=== PATIENT | female | born 1925 | race Caucasian/White ===

== ENCOUNTER 2017-04-01 11:12 | Inpatient (IN) | payer MEDICARE, MEDICAID ==
[~2017-04-01] VITALS: Ht 144.8 cm; Wt 50.8 kg
[~2017-04-01 11:12] MED LIST: AMLO10TA80; LISI10TA5
[2017-04-01] MEDS ORDERED: ASPIRIN 81MG TABLET PO STA (12:02)
[2017-04-01] MEDS ORDERED: HYDRALAZINE 20MG/ML VIAL IV ONE (12:15)
[2017-04-01 12:55] LABS: BASOPHILS % 0.6 % (0.0-2.0); EOSINOPHILS % 1.8 % (0.0-5.0); HEMATOCRIT. 36.4 % (36.0-48.0); HEMOGLOBIN. 12.4 g/dL (12.0-16.0); MEAN CORPUSCULAR HEMOGLOBIN 31.2 pg (28.0-32.0); MEAN CORPUSCULAR VOLUME 91.3 fL (81.0-99.0); MEAN PLATELET VOLUME 8.5 fl (7.4-10.4); MONOCYTES % 10.3 % (2.0-8.0); NEUTROPHILS % 59.3 % (40.0-76.0); PLATELET 253 x1000/uL (130-400); RED BLOOD CELL COUNT 3.99 mill/uL (4.2-5.4); RED CELL DISTRIBUTION WIDTH 12.8 % (11.6-14.6)
[2017-04-01 13:04] LABS: PROTHROMBIN TIME 10.4 sec (9.4-11.6)
[2017-04-01 13:12] LABS: CARBON DIOXIDE 28 mEq/L (21-32); CHLORIDE 101 mEq/L (98-107)
[2017-04-01 13:14] LABS: TROPONIN I 0.02 ng/mL (0.00-0.04)
[2017-04-01] MEDS ORDERED: LABETALOL 5MG/ML SYR 20 MG/4 ML SYRINGE IV ONE (13:30)
[2017-04-01 16:30] VITALS: BP 200/68
[2017-04-01 16:46] VITALS: BP 200/68
[2017-04-01 16:49] VITALS: BP 200/68
[2017-04-01] MEDS ORDERED: DIPHENHYDRAMINE 50MG/ML VIAL IV PRN (17:30)
[2017-04-01] MEDS ORDERED: DOCUSATE SODIUM 100MG CAPSULE PO PRN (17:30)
[2017-04-01] MEDS ORDERED: ONDANSETRON HCL 4MG/2ML VIAL IV PRN (17:30)
[2017-04-01] MEDS ORDERED: MAGNESIUM/ALUMINUM HYDROXIDE/SIMETHICONE 30ML UDC PO PRN (17:30)
[2017-04-01] MEDS ORDERED: GUAIFENESIN 200MG/10ML SUGAR FREE UDC PO PRN (17:30)
[2017-04-01] MEDS: CLONIDINE 0.1MG TABLET PO PRN (17:42)
[2017-04-01] MEDS: ACETAMINOPHEN 325MG TABLET PO PRN (17:43)
[2017-04-01 20:00] VITALS: BP 125/40
[2017-04-01] MEDS: METOPROLOL TARTRATE 25MG TABLET PO SCH (21:00)
[2017-04-01 23:10] LABS: CREATINE KINASE MB FRACTION 4.9 ng/mL (0.5-3.6)
[2017-04-01 23:19] LABS: TROPONIN I 1.1 ng/mL (0.00-0.04)
[2017-04-02] VITALS: BP 158/56
[2017-04-02 04:00] VITALS: BP 167/56
[2017-04-02] MEDS: ACETAMINOPHEN 325MG TABLET PO PRN ×2 (04:36→09:12)
[2017-04-02] MEDS ORDERED: LEVOTHYROXINE SODIUM 75MCG TABLET PO SCH ×2 (07:20)
[2017-04-02 08:26] LABS: CREATINE KINASE MB FRACTION 6.3 ng/mL (0.5-3.6); T4 FREE 1.41 ng/dL (0.76-1.46)
[2017-04-02 08:32] LABS: TROPONIN I 2.5 ng/mL (0.00-0.04)
[2017-04-02 08:35] LABS: C REACTIVE PROTEIN QUANT 7.6 mg/L (0.0-3.0)
[2017-04-02] MEDS ORDERED: ENOXAPARIN 30MG/0.3ML SYR SUBCUT SCH ×2 (09:00→10:00)
[2017-04-02] MEDS ORDERED: HYDRALAZINE HCL 25MG TABLET PO SCH (09:00)
[2017-04-02] MEDS: METOPROLOL TARTRATE 25MG TABLET PO SCH ×2 (09:12→21:39)
[2017-04-02] MEDS: ASPIRIN 81MG TABLET PO SCH (09:13)
[2017-04-02] MEDS: LOSARTAN POTASSIUM 50 MG TABLET PO SCH ×2 (09:13→16:43)
[2017-04-02 09:26] VITALS: BP 135/69
[2017-04-02] MEDS ORDERED: ENOXAPARIN 40MG/0.4ML SYR SUBCUT NR (10:00)
[2017-04-02 10:20] LABS: BASOPHILS % 0.7 % (0.0-2.0); EOSINOPHILS % 2.1 % (0.0-5.0); HEMATOCRIT. 32.2 % (36.0-48.0); HEMOGLOBIN. 11.1 g/dL (12.0-16.0); LYMPHOCYTES % 23.4 % (20.0-50.0); MEAN CORPUSCULAR HEMOGLOBIN 31.4 pg (28.0-32.0); MEAN CORPUSCULAR VOLUME 91.7 fL (81.0-99.0); MEAN PLATELET VOLUME 9.3 fl (7.4-10.4); MONOCYTES % 10.5 % (2.0-8.0); NEUTROPHILS % 63.3 % (40.0-76.0); PLATELET 239 x1000/uL (130-400); RED BLOOD CELL COUNT 3.51 mill/uL (4.2-5.4); RED CELL DISTRIBUTION WIDTH 12.8 % (11.6-14.6)
[2017-04-02 12:39] VITALS: BP 168/54
[2017-04-02] MEDS: SODIUM CHLORIDE 0.9% INJ 3ML FLUSH IVF SCH ×2 (14:00→21:39)
[2017-04-02 17:17] VITALS: BP 183/52
[2017-04-02 18:08] LABS: TROPONIN I 2.4 ng/mL (0.00-0.04)
[2017-04-02 20:00] VITALS: BP 189/64
[2017-04-02] MEDS: HYDRALAZINE HCL 25MG TABLET PO SCH (21:40)
[2017-04-03] VITALS: BP 142/55
[2017-04-03 04:00] VITALS: BP 205/62
[2017-04-03] MEDS: HYDRALAZINE HCL 25MG TABLET PO SCH ×3 (05:52→22:16)
[2017-04-03] MEDS: CLONIDINE 0.1MG TABLET PO PRN (05:56)
[2017-04-03] MEDS: SODIUM CHLORIDE 0.9% INJ 3ML FLUSH IVF SCH ×3 (05:58→20:48)
[2017-04-03] MEDS: LEVOTHYROXINE SODIUM 50MCG TABLET PO SCH (06:27)
[2017-04-03] MEDS ORDERED: LEVOTHYROXINE SODIUM 50MCG TABLET PO SCH (07:20)
[2017-04-03 07:59] VITALS: BP 176/52
[2017-04-03 08:16] LABS: CREATINE KINASE MB FRACTION 2.4 ng/mL (0.5-3.6)
[2017-04-03] MEDS: LOSARTAN POTASSIUM 50 MG TABLET PO SCH ×2 (08:25→17:05)
[2017-04-03] MEDS: METOPROLOL TARTRATE 25MG TABLET PO SCH ×2 (08:26→20:47)
[2017-04-03] MEDS: ASPIRIN 81MG TABLET PO SCH (08:26)
[2017-04-03 08:45] LABS: TROPONIN I 1.3 ng/mL (0.00-0.04)
[2017-04-03] MEDS ORDERED: ENOXAPARIN 30MG/0.3ML SYR SUBCUT SCH (09:00)
[2017-04-03 11:58] VITALS: BP 142/45
[2017-04-03 12:45] LABS: CARBON DIOXIDE 29 mEq/L (21-32); CHLORIDE 100 mEq/L (98-107)
[2017-04-03 16:00] VITALS: BP 165/52
[2017-04-03] MEDS: ACETAMINOPHEN 325MG TABLET PO PRN (17:08)
[2017-04-03 20:00] VITALS: BP 160/54
[2017-04-03] MEDS: AMLODIPINE 5MG TABLET PO SCH (20:45)
[2017-04-03] MEDS: LIDOCAINE 5% PATCH TOP SCH (22:15)
[2017-04-04 04:00] VITALS: BP 154/56
[2017-04-04] MEDS: SODIUM CHLORIDE 0.9% INJ 3ML FLUSH IVF SCH ×3 (06:13→21:36)
[2017-04-04] MEDS: HYDRALAZINE HCL 25MG TABLET PO SCH ×2 (06:13→13:22)
[2017-04-04] MEDS: LEVOTHYROXINE SODIUM 50MCG TABLET PO SCH (06:14)
[2017-04-04 07:25] LABS: EOSINOPHILS % 3.8 % (0.0-5.0); HEMATOCRIT. 35.1 % (36.0-48.0); HEMOGLOBIN. 11.7 g/dL (12.0-16.0); LYMPHOCYTES % 29.2 % (20.0-50.0); MEAN CORPUSCULAR HEMOGLOBIN 30.9 pg (28.0-32.0); MEAN CORPUSCULAR VOLUME 92.9 fL (81.0-99.0); MEAN PLATELET VOLUME 8.9 fl (7.4-10.4); MONOCYTES % 10.9 % (2.0-8.0); NEUTROPHILS % 55.1 % (40.0-76.0); PLATELET 249 x1000/uL (130-400); RED BLOOD CELL COUNT 3.77 mill/uL (4.2-5.4); RED CELL DISTRIBUTION WIDTH 13.2 % (11.6-14.6)
[2017-04-04 08:04] LABS: PHOSPHORUS 4.4 mg/dL (2.5-4.9)
[2017-04-04] MEDS: METOPROLOL TARTRATE 25MG TABLET PO SCH ×2 (08:26→21:24)
[2017-04-04] MEDS: ASPIRIN 81MG TABLET PO SCH (08:29)
[2017-04-04 08:30] VITALS: BP 207/65
[2017-04-04] MEDS: LOSARTAN POTASSIUM 50 MG TABLET PO SCH ×2 (08:30→17:14)
[2017-04-04] MEDS: CLONIDINE 0.1MG TABLET PO PRN (08:30)
[2017-04-04] MEDS: AMLODIPINE 5MG TABLET PO SCH ×2 (08:30→21:25)
[2017-04-04] MEDS: LIDOCAINE 5% PATCH TOP SCH (08:33)
[2017-04-04 09:47] LABS: CLARITY URINE CLEAR (CLEAR); COLOR URINE YELLOW (YELLOW); GLUCOSE URINE NEGATIVE (NEGATIVE); KETONES URINE NEGATIVE (NEGATIVE); LEUKOCYTE ESTERASE URINE NEGATIVE (NEGATIVE); NITRITE URINE NEGATIVE (NEGATIVE); OCCULT BLOOD URINE NEGATIVE (NEGATIVE); PH URINE 7.5 (4.5-8.0); PROTEIN URINE NEGATIVE (NEGATIVE); SPECIFIC GRAVITY URINE 1.008 (1.005-1.030); UROBILINOGEN URINE 0.2 E.U./dL (0.2-1.0)
[2017-04-04 12:00] VITALS: BP 149/56
[2017-04-04] MEDS: CLONIDINE 0.2MG TABLET PO SCH ×2 (13:00→16:04)
[2017-04-04 16:00] VITALS: BP 205/88
[2017-04-04] MEDS: ACETAMINOPHEN 325MG TABLET PO PRN (18:19)
[2017-04-04 20:00] VITALS: BP 137/50
[2017-04-04] MEDS ORDERED: ZOLPIDEM TARTRATE 5MG TABLET PO NR (21:00)
[2017-04-04] MEDS ORDERED: HYDROCODONE/ACETAMINOPHEN 5/325MG TABLET PO PRN (21:00)
[2017-04-05] VITALS: BP 132/56
[2017-04-05] MEDS: HYDRALAZINE HCL 50MG TABLET PO SCH ×4 (00:38→23:00)
[2017-04-05 04:00] VITALS: BP 147/52
[2017-04-05] MEDS: LEVOTHYROXINE SODIUM 50MCG TABLET PO SCH (06:47)
[2017-04-05] MEDS: SODIUM CHLORIDE 0.9% INJ 3ML FLUSH IVF SCH ×3 (06:51→23:00)
[2017-04-05 08:00] VITALS: BP 159/46
[2017-04-05] MEDS: ACETAMINOPHEN 325MG TABLET PO PRN ×2 (08:24→16:53)
[2017-04-05] MEDS: METOPROLOL TARTRATE 25MG TABLET PO SCH ×2 (08:25→21:00)
[2017-04-05] MEDS: LOSARTAN POTASSIUM 50 MG TABLET PO SCH ×2 (08:26→16:50)
[2017-04-05] MEDS: AMLODIPINE 5MG TABLET PO SCH (08:26)
[2017-04-05] MEDS: ASPIRIN 81MG TABLET PO SCH (08:26)
[2017-04-05] MEDS: LIDOCAINE 5% PATCH TOP SCH (08:31)
[2017-04-05] MEDS ORDERED: HYDRALAZINE 20MG/ML VIAL IV PRN (11:00)
[2017-04-05 12:00] VITALS: BP 147/48
[2017-04-05 16:00] VITALS: BP 169/56
[2017-04-05 20:00] VITALS: BP 144/57
[2017-04-06] MEDS: ACETAMINOPHEN 325MG TABLET PO PRN ×2 (02:08→11:29)
[2017-04-06 04:00] VITALS: BP 189/72
[2017-04-06] MEDS ORDERED: AMLODIPINE 5MG TABLET PO SCH (06:00)
[2017-04-06] MEDS: HYDRALAZINE HCL 50MG TABLET PO SCH ×2 (06:24→15:54)
[2017-04-06] MEDS: SODIUM CHLORIDE 0.9% INJ 3ML FLUSH IVF SCH ×2 (06:24→14:00)
[2017-04-06] MEDS: LEVOTHYROXINE SODIUM 50MCG TABLET PO SCH (06:24)
[2017-04-06 06:36] LABS: BASOPHILS % 0.5 % (0.0-2.0); EOSINOPHILS % 2.8 % (0.0-5.0); HEMATOCRIT. 33.7 % (36.0-48.0); HEMOGLOBIN. 11.3 g/dL (12.0-16.0); LYMPHOCYTES % 25.9 % (20.0-50.0); MEAN CORPUSCULAR HEMOGLOBIN 30.9 pg (28.0-32.0); MEAN CORPUSCULAR VOLUME 92.5 fL (81.0-99.0); MEAN PLATELET VOLUME 9.2 fl (7.4-10.4); MONOCYTES % 10.2 % (2.0-8.0); NEUTROPHILS % 60.6 % (40.0-76.0); PLATELET 228 x1000/uL (130-400); RED BLOOD CELL COUNT 3.64 mill/uL (4.2-5.4); RED CELL DISTRIBUTION WIDTH 12.8 % (11.6-14.6)
[2017-04-06 07:28] VITALS: BP 191/50
[2017-04-06 07:29] LABS: TROPONIN I 0.36 ng/mL (0.00-0.04)
[2017-04-06] MEDS: METOPROLOL TARTRATE 25MG TABLET PO SCH (08:56)
[2017-04-06] MEDS: ASPIRIN 81MG TABLET PO SCH (08:56)
[2017-04-06] MEDS: LOSARTAN POTASSIUM 50 MG TABLET PO SCH ×2 (08:56→16:00)
[2017-04-06] MEDS: LIDOCAINE 5% PATCH TOP SCH (08:56)
[2017-04-06 11:23] VITALS: BP 190/58
[2017-04-06] MEDS ORDERED: GADOBENATE DIMEGLUMINE 529 MG/ML 10ML IV ONE (13:26)
[2017-04-06 14:30] VITALS: BP 150/50
[2017-04-06] MEDS ORDERED: HYDROCHLOROTHIAZIDE 25MG TABLET PO SCH (15:00)
[2017-04-06 15:48] VITALS: BP 148/43
[2017-04-06] MEDS ORDERED: AMLODIPINE 10MG TABLET PO SCH (16:00)
[2017-04-06 17:14] VITALS: BP 148/43
== END 2017-04-06 18:00 | disposition home health service (06) | DRG 64 ==
LOC: EDBEDREQTM 15:39 → EDBEDREQ 15:39 → ENRESERV 15:40 → ER 16:51 → 6WST 16:52
PROVIDERS: ADMIT Internal Medicine; ATTEND Internal Medicine
DX: I63.9 Cerebral infarction, unspecified (principal); I21.4 Non-ST elevation (NSTEMI) myocardial infarction; I67.4 Hypertensive encephalopathy; I16.1 Hypertensive emergency; I24.8 Other forms of acute ischemic heart disease; I13.10 Hypertensive heart and chronic kidney disease without heart failure, with stage 1 through stage 4 chronic kidney disease, or unspecified chronic kidney disease; N18.3 Chronic kidney disease, stage 3 (moderate); R51 Headache; M17.0 Bilateral primary osteoarthritis of knee; Z91.14 Patient's other noncompliance with medication regimen; E03.9 Hypothyroidism, unspecified; E78.5 Hyperlipidemia, unspecified; I27.2 Other secondary pulmonary hypertension; I35.1 Nonrheumatic aortic (valve) insufficiency; M51.36 Other intervertebral disc degeneration, lumbar region; M81.0 Age-related osteoporosis without current pathological fracture; Z79.82 Long term (current) use of aspirin; Z79.899 Other long term (current) drug therapy; Z91.19 Patient's noncompliance with other medical treatment and regimen; G89.29 Other chronic pain; M50.30 Other cervical disc degeneration, unspecified cervical region; I68.0 Cerebral amyloid angiopathy
CPT/HCPCS: 36415; 70544; 70547; 70551; 71010; 80048; 80053; 80061; 81003; 82306; 82550; 82553; 83036; 83735; 83880; 83970; 84100; 84439; 84443; 84484; 85025; 85610; 85651; 85730; 86140; 93005; 93306; 93970; 96374; 96375; 97116; 97162; 99291; A9577; J0360; J1650; J3490

== ENCOUNTER 2017-06-26 07:27 | Emergency (ER) | payer MEDICARE, MEDICAID ==
[~2017-06-26] VITALS: Ht 144.8 cm; Wt 52.0 kg
[2017-06-26] MEDS ORDERED: MORPHINE SULFATE 4 MG/ML CPJ (NOT FOR IM USE) IV STA (08:54)
[2017-06-26 09:15] LABS: BASOPHILS % 0.5 % (0.0-2.0); EOSINOPHILS % 1.3 % (0.0-5.0); HEMATOCRIT. 36.6 % (36.0-48.0); HEMOGLOBIN. 12.2 g/dL (12.0-16.0); LYMPHOCYTES % 18.1 % (20.0-50.0); MEAN CORPUSCULAR VOLUME 93.4 fL (81.0-99.0); MEAN PLATELET VOLUME 9.4 fl (7.4-10.4); MONOCYTES % 8.2 % (2.0-8.0); NEUTROPHILS % 71.9 % (40.0-76.0); PLATELET 229 x1000/uL (130-400); RED BLOOD CELL COUNT 3.92 mill/uL (4.2-5.4); RED CELL DISTRIBUTION WIDTH 13.4 % (11.6-14.6)
[2017-06-26] MEDS ORDERED: MORPHINE SULFATE 2 MG/ML CPJ (NOT FOR IM USE) IV ONE (09:15)
[2017-06-26 09:17] LABS: PROTHROMBIN TIME 10.7 sec (9.4-11.6)
[2017-06-26 09:22] LABS: CARBON DIOXIDE 29 mEq/L (21-32); CHLORIDE 100 mEq/L (98-107)
[2017-06-26 09:35] LABS: CLARITY URINE CLEAR (CLEAR); COLOR URINE YELLOW (YELLOW); KETONES URINE NEGATIVE (NEGATIVE); LEUKOCYTE ESTERASE URINE TRACE (NEGATIVE); NITRITE URINE NEGATIVE (NEGATIVE); OCCULT BLOOD URINE NEGATIVE (NEGATIVE); PROTEIN URINE 1+ (NEGATIVE); SPECIFIC GRAVITY URINE 1.013 (1.005-1.030); UROBILINOGEN URINE 0.2 E.U./dL (0.2-1.0)
[2017-06-26] MEDS ORDERED: SODIUM CHLORIDE 0.9% 1,000 ML IV ONE (09:45)
[2017-06-26] MEDS ORDERED: IOHEXOL-300 100 ML BOTTLE ONE (10:35)
[2017-06-26] MEDS ORDERED: CLONIDINE 0.2MG TABLET PO ONE (11:15)
[2017-06-26] MEDS ORDERED: BUPIVACAINE HCL 0.5% (5MG/ML) 50ML ONE (12:28)
[2017-06-26] MEDS ORDERED: SKIN ADHESIVE 0.7 GM EA TOP ONE (12:28)
[2017-06-26] MEDS ORDERED: MEPERIDINE HCL/PF 25MG/ML CPJ IV PRN (12:30)
[2017-06-26] MEDS ORDERED: MORPHINE SULFATE 2 MG/ML CPJ (NOT FOR IM USE) IV PRN (12:30)
[2017-06-26] MEDS ORDERED: ONDANSETRON HCL 4MG/2ML VIAL IV PRN (12:30)
[2017-06-26] MEDS ORDERED: FENTANYL CITRATE/PF 50MCG/ML 2ML VIAL IV PRN (12:30)
[2017-06-26] MEDS ORDERED: ROCURONIUM BROMIDE 10MG/ML VIAL 5ML IV ONE (12:42)
[2017-06-26] MEDS ORDERED: SUCCINYLCHOLINE CHLORIDE 200MG/10ML VIAL IV ONE (12:42)
[2017-06-26] MEDS ORDERED: PROPOFOL 200MG/20ML VIAL IV ONE (12:43)
[2017-06-26 15:10] VITALS: BP 119/59
== END 2017-06-26 15:14 | disposition left against medical advice (07) ==
LOC: ER 07:48 → EDBEDREQ 10:30 → UNDOADMIN 12:22 → ORIP 12:22 → ER 15:14
DX: K35.80 Unspecified acute appendicitis (principal); N28.1 Cyst of kidney, acquired; N18.9 Chronic kidney disease, unspecified; I10 Essential (primary) hypertension
CPT/HCPCS: 36415; 71010; 74177; 80053; 81001; 83690; 85025; 85610; 93005; 99285; G0168; J3490; Q9967; J0330; J2270; J2704; J7030

== ENCOUNTER 2017-09-24 06:05 | Inpatient (IN) | payer MEDICARE, MEDICAID ==
[~2017-09-24] VITALS: Ht 144.8 cm; Wt 63.5 kg
[2017-09-24] MEDS ORDERED: CLONIDINE 0.1MG TABLET PO ONE (08:00)
[2017-09-24 08:07] LABS: BASOPHILS % 0.9 % (0.0-2.0); EOSINOPHILS % 1.4 % (0.0-5.0); HEMATOCRIT. 33.1 % (36.0-48.0); LYMPHOCYTES % 24.8 % (20.0-50.0); MEAN CORPUSCULAR HEMOGLOBIN 29.6 pg (28.0-32.0); MEAN PLATELET VOLUME 9.3 fl (7.4-10.4); MONOCYTES % 10.6 % (2.0-8.0); NEUTROPHILS % 62.3 % (40.0-76.0); PLATELET 246 x1000/uL (130-400); RED BLOOD CELL COUNT 3.72 mill/uL (4.2-5.4); RED CELL DISTRIBUTION WIDTH 13.3 % (11.6-14.6)
[2017-09-24 08:12] LABS: PARTIAL THROMBOPLASTIN TIME 27.1 sec (23.4-31.0); PROTHROMBIN TIME 10.7 sec (9.4-11.6)
[2017-09-24 08:22] LABS: CHLORIDE 102 mEq/L (98-107)
[2017-09-24] MEDS ORDERED: CLONIDINE 0.1MG TABLET PO PRN (14:00)
[2017-09-24] MEDS ORDERED: TEMAZEPAM 15MG CAPSULE PO PRN (15:15)
[2017-09-24] MEDS ORDERED: MAGNESIUM/ALUMINUM HYDROXIDE/SIMETHICONE 30ML UDC PO PRN (15:15)
[2017-09-24] MEDS ORDERED: ONDANSETRON HCL 4MG/2ML INJ IV PRN (15:15)
[2017-09-24] MEDS ORDERED: MORPHINE SULFATE 2 MG/ML CPJ (NOT FOR IM USE) IV PRN (15:15)
[2017-09-24] MEDS ORDERED: MAGNESIUM HYDROXIDE 400MG/5ML 30ML UDC PO PRN (15:15)
[2017-09-24] MEDS ORDERED: DIPHENHYDRAMINE 50MG/ML VIAL IV PRN (15:15)
[2017-09-24 15:23] VITALS: BP 145/78
[2017-09-24 15:35] VITALS: BP 145/78
[2017-09-24] MEDS ORDERED: LOSA50TA20 PO (15:35)
[2017-09-24] MEDS: NITROGLYCERIN OINT 1GM/INCH UDPKT TD SCH (15:51)
[2017-09-24] MEDS: ENOXAPARIN 30MG/0.3ML SYR SUBCUT SCH (15:51)
[2017-09-24] MEDS: AMLODIPINE 5MG TABLET PO SCH ×2 (15:51→20:56)
[2017-09-24 20:00] VITALS: BP 184/73
[2017-09-24] MEDS: CLONIDINE 0.1MG TABLET PO PRN (20:55)
[2017-09-24] MEDS: ACETAMINOPHEN 325MG TABLET PO PRN (20:55)
[2017-09-24] MEDS: SODIUM CHLORIDE 0.9% INJ 3ML FLUSH IVF SCH (20:56)
[2017-09-24] MEDS: LOSARTAN POTASSIUM 50 MG TABLET PO SCH (20:56)
[2017-09-25] VITALS (8 sets, daily range): BP systolic 126–170; BP diastolic 55–78
[2017-09-25] MEDS: NITROGLYCERIN OINT 1GM/INCH UDPKT TD SCH ×4 (00:38→23:42)
[2017-09-25] MEDS: LEVOTHYROXINE SODIUM 25MCG TABLET PO SCH (06:34)
[2017-09-25] MEDS: SODIUM CHLORIDE 0.9% INJ 3ML FLUSH IVF SCH ×3 (06:34→23:42)
[2017-09-25 06:36] LABS: BASOPHILS % 0.7 % (0.0-2.0); EOSINOPHILS % 1.9 % (0.0-5.0); HEMATOCRIT. 28.9 % (36.0-48.0); HEMOGLOBIN. 9.8 g/dL (12.0-16.0); LYMPHOCYTES % 29.2 % (20.0-50.0); MEAN CORPUSCULAR HEMOGLOBIN 30.3 pg (28.0-32.0); MEAN CORPUSCULAR VOLUME 89.8 fL (81.0-99.0); MEAN PLATELET VOLUME 9.6 fl (7.4-10.4); MONOCYTES % 12.3 % (2.0-8.0); NEUTROPHILS % 55.9 % (40.0-76.0); PLATELET 208 x1000/uL (130-400); RED BLOOD CELL COUNT 3.22 mill/uL (4.2-5.4); RED CELL DISTRIBUTION WIDTH 13.3 % (11.6-14.6)
[2017-09-25 06:57] LABS: CHLORIDE 102 mEq/L (98-107)
[2017-09-25 07:33] LABS: CREATINE KINASE MB FRACTION 1.9 ng/mL (0.5-3.6)
[2017-09-25] MEDS: AMLODIPINE 5MG TABLET PO SCH ×2 (08:57→10:24)
[2017-09-25] MEDS: LOSARTAN POTASSIUM 50 MG TABLET PO SCH ×2 (08:57→20:13)
[2017-09-25] MEDS: ENOXAPARIN 30MG/0.3ML SYR SUBCUT SCH (18:22)
[2017-09-26] VITALS (10 sets, daily range): BP systolic 129–192; BP diastolic 48–68
[2017-09-26] MEDS: CLONIDINE 0.1MG TABLET PO PRN ×2 (05:00→14:06)
[2017-09-26] MEDS: SODIUM CHLORIDE 0.9% INJ 3ML FLUSH IVF SCH ×3 (06:42→21:37)
[2017-09-26] MEDS: LEVOTHYROXINE SODIUM 25MCG TABLET PO SCH (06:43)
[2017-09-26] MEDS: NITROGLYCERIN OINT 1GM/INCH UDPKT TD SCH (06:49)
[2017-09-26] MEDS: LOSARTAN POTASSIUM 50 MG TABLET PO SCH ×2 (09:29→21:36)
[2017-09-26] MEDS: AMLODIPINE 5MG TABLET PO SCH ×2 (09:29→21:00)
[2017-09-26] MEDS: ASPIRIN 81MG EC TABLET PO SCH (11:59)
[2017-09-26] MEDS: ISOSORBIDE MONONITRATE 60MG TABLET SR 24HR PO SCH (12:00)
[2017-09-26] MEDS: DOCUSATE SODIUM 100MG CAPSULE PO PRN (17:48)
[2017-09-26] MEDS: ENOXAPARIN 30MG/0.3ML SYR SUBCUT SCH (17:48)
[2017-09-26] MEDS: ATORVASTATIN CALCIUM 40MG TABLET PO SCH (21:36)
[2017-09-27] VITALS: BP 140/52
[2017-09-27 04:00] VITALS: BP 158/66
[2017-09-27] MEDS: LEVOTHYROXINE SODIUM 25MCG TABLET PO SCH (06:52)
[2017-09-27] MEDS: SODIUM CHLORIDE 0.9% INJ 3ML FLUSH IVF SCH ×3 (06:52→21:20)
[2017-09-27 08:00] VITALS: BP 174/76
[2017-09-27] MEDS: ASPIRIN 81MG EC TABLET PO SCH (08:09)
[2017-09-27] MEDS: AMLODIPINE 5MG TABLET PO SCH ×2 (08:09→21:20)
[2017-09-27] MEDS: ISOSORBIDE MONONITRATE 60MG TABLET SR 24HR PO SCH (08:10)
[2017-09-27] MEDS: LOSARTAN POTASSIUM 50 MG TABLET PO SCH ×2 (08:10→21:20)
[2017-09-27 12:00] VITALS: BP 132/55
[2017-09-27] MEDS: ACETAMINOPHEN 325MG TABLET PO PRN ×2 (12:41→21:19)
[2017-09-27] MEDS: DOCUSATE SODIUM 100MG CAPSULE PO PRN (12:41)
[2017-09-27] MEDS ORDERED: CLONIDINE 0.2MG TABLET PO PRN (15:00)
[2017-09-27] MEDS ORDERED: CLONIDINE 0.1MG TABLET PO PRN (15:00)
[2017-09-27 16:00] VITALS: BP 151/91
[2017-09-27 20:00] VITALS: BP 153/57
[2017-09-27] MEDS: ATORVASTATIN CALCIUM 40MG TABLET PO SCH (21:20)
[2017-09-28] VITALS: BP_SYST 148; BP_SYST 153; BP_DIAS 57; BP_DIAS 76
[2017-09-28 04:00] VITALS: BP 150/64
[2017-09-28] MEDS: LEVOTHYROXINE SODIUM 25MCG TABLET PO SCH (06:11)
[2017-09-28] MEDS: SODIUM CHLORIDE 0.9% INJ 3ML FLUSH IVF SCH ×2 (06:13→13:06)
[2017-09-28 06:48] LABS: BASOPHILS % 0.7 % (0.0-2.0); EOSINOPHILS % 2.1 % (0.0-5.0); LYMPHOCYTES % 27.3 % (20.0-50.0); MEAN CORPUSCULAR HEMOGLOBIN 29.5 pg (28.0-32.0); MEAN CORPUSCULAR VOLUME 88.6 fL (81.0-99.0); MEAN PLATELET VOLUME 9.6 fl (7.4-10.4); MONOCYTES % 10.2 % (2.0-8.0); NEUTROPHILS % 59.7 % (40.0-76.0); PLATELET 275 x1000/uL (130-400); RED BLOOD CELL COUNT 3.72 mill/uL (4.2-5.4); RED CELL DISTRIBUTION WIDTH 13.1 % (11.6-14.6)
[2017-09-28 07:25] LABS: CHLORIDE 101 mEq/L (98-107)
[2017-09-28 07:26] VITALS: BP 185/75
[2017-09-28 07:29] LABS: HDL CHOLESTEROL 68 mg/dL (40-59); LDL CHOLESTEROL 115 mg/dL (5-100)
[2017-09-28] MEDS: AMLODIPINE 5MG TABLET PO SCH (08:16)
[2017-09-28] MEDS: ISOSORBIDE MONONITRATE 60MG TABLET SR 24HR PO SCH (08:16)
[2017-09-28] MEDS: LOSARTAN POTASSIUM 50 MG TABLET PO SCH (08:16)
[2017-09-28] MEDS: ASPIRIN 81MG EC TABLET PO SCH (08:16)
[2017-09-28 10:33] VITALS: BP 162/70
[2017-09-28 12:30] VITALS: BP 156/76
[2017-09-28] MEDS: ACETAMINOPHEN 325MG TABLET PO PRN (13:04)
[2017-09-28] MEDS ORDERED: HYDRALAZINE HCL 50MG TABLET PO SCH (14:00)
[2017-09-28 14:33] VITALS: BP 156/76
== END 2017-09-28 15:15 | disposition home or self-care (01) | DRG 281 ==
LOC: ER 06:05 → 8WST 09:33 → EDBEDREQ 09:35 → ENRESERV 13:00
PROVIDERS: ADMIT Internal Medicine; ATTEND Internal Medicine
DX: I21.4 Non-ST elevation (NSTEMI) myocardial infarction (principal); E46 Unspecified protein-calorie malnutrition; E11.22 Type 2 diabetes mellitus with diabetic chronic kidney disease; E11.65 Type 2 diabetes mellitus with hyperglycemia; I42.9 Cardiomyopathy, unspecified; I27.20 Pulmonary hypertension, unspecified; N18.9 Chronic kidney disease, unspecified; M19.90 Unspecified osteoarthritis, unspecified site; I35.1 Nonrheumatic aortic (valve) insufficiency; I25.10 Atherosclerotic heart disease of native coronary artery without angina pectoris; I13.10 Hypertensive heart and chronic kidney disease without heart failure, with stage 1 through stage 4 chronic kidney disease, or unspecified chronic kidney disease; E78.00 Pure hypercholesterolemia, unspecified; E03.9 Hypothyroidism, unspecified; Z86.73 Personal history of transient ischemic attack (TIA), and cerebral infarction without residual deficits; Z85.72 Personal history of non-Hodgkin lymphomas; I25.2 Old myocardial infarction; Z79.899 Other long term (current) drug therapy; Z68.30 Body mass index [BMI] 30.0-30.9, adult
CPT/HCPCS: 36415; 71045; 80061; 82553; 83735; 83880; 84443; 84484; 85379; 93005; 93306; 93970; J1650